=== PATIENT | female | born 1985 | race Caucasian/White ===

== ENCOUNTER 2016-08-26 17:01 | Emergency (ER) | payer OTHER, MEDICAID ==
[2016-08-26 17:18] VITALS: BP 139/91
--- NOTE | 2016-08-26 17:33 | UC ---
Palpitation/Dysrhythmia HP - HPI Summary HPI Summary: 31 yo female has had intermittent skipped beats since 3AM no CP or SOB dad has AF no f/c three days ago had 15-20 episodes of diarrhea - History of Current Complaint Chief Complaint: UCChestPain Stated Complaint: CHEST PAIN, AND PALIPATATIONS Time Seen by Provider: 08/26/16 17:32 Hx Obtained From: Patient Hx Last Menstrual Period: 3-4 weeks ago Onset/Duration: Sudden Onset - about 3AM Timing: Intermittent Episodes Lasting: - seconds Severity Initially: Mild Severity Currently: None Pain Intensity: 1 Pain Scale Used: 0-10 Numeric Character: Skipped Beats Aggravating Factor(s): Nothing Alleviating Factor(s): Nothing Related History: Similar Episode/Dx as - has had them in past - Allergy/Home Medications Allergies/Adverse Reactions: Allergies Allergy/AdvReac Type Severity Reaction Status Date / Time Penicillins [PCN] Allergy Hives Verified 08/26/16 17:18 Home Medications: Home Medications NK [No Home Medications Reported] 08/26/16 [History Confirmed 08/26/16] PMH/Surg Hx/FS Hx/Imm Hx Previously Healthy: Yes - Surgical History Surgical History: None - Family History Known Family History: Positive: Hypertension, Diabetes, Other - a/f - Social History Alcohol Use: Occasionally Substance Use Type: None Smoking Status (MU): Current Every Day Smoker Length of Time of Smoking/Using Tobacco: 4 cig a day Review of Systems Constitutional: Negative Skin: Negative Eyes: Negative ENT: Negative Respiratory: Negative Cardiovascular: Palpitations Gastrointestinal: Negative Genitourinary: Negative Motor: Negative Neurovascular: Negative Musculoskeletal: Negative Neurological: Negative Psychological: Negative All Other Systems Reviewed And Are Negative: Yes Physical Exam Triage Information Reviewed: Yes Appearance: Well-Appearing, No Pain Distress, Well-Nourished, Obese Vital Signs: Initial Vital Signs Temp 97.8 F 08/26/16 17:06 Pulse 70 08/26/16 17:06 Resp 16 08/26/16 17:06 BP 139/91 08/26/16 17:06 Pulse Ox 99 08/26/16 17:06 Vital Signs Reviewed: Yes Eyes: Positive: Conjunctiva Clear ENT: Positive: Hearing grossly normal, Pharynx normal, Tonsillar swelling. Negative: Nasal congestion, Nasal drainage, Tonsillar exudate, Trismus, Muffled/ hoarse voice Neck exam: Normal Neck: Positive: Supple, Nontender, No Lymphadenopathy Respiratory: Positive: Lungs clear, Normal breath sounds, No respiratory distress Cardiovascular: Positive: RRR, No Murmur. Negative: Tachycardia Abdomen Description: Positive: Nontender, No Organomegaly, Soft Musculoskeletal: Positive: ROM Intact, No Edema Neurological Exam: Normal Neurological: Positive: Alert Psychological Exam: Normal Diagnostics - EKG Cardiac Rate: NL Cardiac Rhythm: Sinus: Normal Ectopy: None ST Segment: Normal Palpitations Course/Dx - Differential Dx/Diagnosis Provider Diagnoses: palpitations Discharge - Discharge Plan Condition: Stable Disposition: HOME Patient Education Materials: Palpitations (ED) Referrals: Rosa Barfield [Primary Care Provider] - 1 Week Additional Instructions: blood work is pending decrease or stop smoking I suggest you ask your MD about getting a SLEEP STUDY return for new or worsening symptoms decrease or stop smoking avoid caffeine
[2016-08-27 10:57] LABS: Hematocrit 42 % (35-47); Hemoglobin 14.2 g/dl (12.0-16.0); Mean Corpuscular HGB Conc 34 g/dl (31-36); Mean Corpuscular Hemoglobin 29 pg (27-31); Mean Corpuscular Volume 86 fL (80-97); Mean Platelet Volume 9 um3 (7.4-10.4); Red Blood Count 4.91 10^6/ul (4.0-5.4); Red Cell Distribution Width 13 % (10.5-15); White Blood Count 10.8 10^3/ul (3.5-10.8)
[2016-08-27 11:17] LABS: BUN/Creatinine Ratio 14.8 (8-20); Calcium 9.3 mg/dL (8.6-10.3); EGFR African American 147.1 (>60); EGFR Non-African American 114.4 (>60); Potassium 3.7 mmol/L (3.5-5.0)
[2016-08-27 11:19] LABS: TSH (Thyroid Stimulating Horm) 3.23 mcIU/mL (0.34-5.60)
== END 2016-08-26 18:12 | disposition home or self-care (01) ==
LOC: UCEAST 17:01
DX: R00.2 Palpitations (principal); R19.7 Diarrhea, unspecified; Z32.02 Encounter for pregnancy test, result negative; Z88.0 Allergy status to penicillin; F17.210 Nicotine dependence, cigarettes, uncomplicated
CPT/HCPCS: 36415; 80048; 81025; 84443; 85025; 93005; 99211; G0463

== ENCOUNTER 2017-04-13 09:34 | Emergency (ER) | payer OTHER, MEDICAID ==
[2017-04-13 09:48] VITALS: BP 128/78
--- NOTE | 2017-04-13 10:06 | UC ---
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 - History of Current Complaint Chief Complaint: UCGeneralIllness Stated Complaint: SORE THROAT Time Seen by Provider: 04/13/17 09:49 Hx Obtained From: Patient Hx Last Menstrual Period: 04/16/17 Onset/Duration: Gradual Onset, Lasting Hours Severity: Moderate Pain Intensity: 4 Pain Scale Used: 0-10 Numeric Cough: None Associated Signs & Symptoms: Positive: Fever - Allergies/Home Medications Allergies/Adverse Reactions: Allergies Allergy/AdvReac Type Severity Reaction Status Date / Time Penicillins [PCN] Allergy Hives Verified 04/13/17 09:43 Home Medications: Home Medications LORazepam TAB(*) [Ativan 0.5 MG TAB (*)] 0.5 mg PO Q6HR 04/13/17 [History Confirmed 04/13/17] PMH/Surg Hx/FS Hx/Imm Hx Previously Healthy: Yes - Surgical History Surgical History: None - Family History Known Family History: Positive: Cardiac Disease, Hypertension, Diabetes, Other - a/f - Social History Alcohol Use: Occasionally Substance Use Type: None Smoking Status (MU): Current Every Day Smoker Length of Time of Smoking/Using Tobacco: 4 cig a day Review of Systems Constitutional: Fever, Chills Skin: Negative Eyes: Negative ENT: Sore Throat Respiratory: Negative Cardiovascular: Negative Gastrointestinal: Negative Genitourinary: Negative Motor: Negative Neurovascular: Negative Musculoskeletal: Myalgia Neurological: Headache Psychological: Negative Is Patient Immunocompromised?: No All Other Systems Reviewed And Are Negative: Yes Physical Exam Triage Information Reviewed: Yes Appearance: Well-Appearing, No Pain Distress, Well-Nourished Vital Signs: Initial Vital Signs Temp 98.3 F 04/13/17 09:45 Pulse 70 04/13/17 09:45 Resp 16 04/13/17 09:45 BP 128/78 04/13/17 09:45 Pulse Ox 99 04/13/17 09:45 Vital Signs Reviewed: Yes Eyes: Positive: Conjunctiva Clear ENT: Positive: Hearing grossly normal, Pharyngeal erythema, TMs normal, Tonsillar swelling, Tonsillar exudate. Negative: Nasal congestion, Nasal drainage, Trismus, Muffled/hoarse voice Dental Exam: Normal Neck: Positive: Supple, Enlarged Nodes @ - ant cervical Respiratory: Positive: Lungs clear, Normal breath sounds, No respiratory distress Cardiovascular: Positive: RRR, No Murmur Musculoskeletal: Positive: ROM Intact, No Edema Neurological: Positive: Alert, Muscle Tone Normal Psychological Exam: Normal Skin Exam: Normal Throat Pain/Nasal Course/Dx - Differential Dx/Diagnosis Provider Diagnoses: acute exudative tonsillitis Discharge - Discharge Plan Condition: Stable Disposition: HOME Prescriptions: Cephalexin CAP* [Keflex CAP*] 500 mg PO BID #20 cap Fluconazole 150 MG (NF) [Diflucan 150 mg (NF)] 150 mg PO ONCE #1 tab Patient Education Materials: Tonsillitis (ED) Forms: *Work Release Referrals: Rosa Barfield [Primary Care Provider] - 4 Days (if not better) Additional Instructions: recheck in 3-4 days if not better rest fluids tylenol
== END 2017-04-13 10:04 | disposition home or self-care (01) ==
LOC: UCEAST 09:34
DX: J03.90 Acute tonsillitis, unspecified (principal); F17.210 Nicotine dependence, cigarettes, uncomplicated
CPT/HCPCS: 99212; G0463

== ENCOUNTER 2017-06-27 11:34 | Emergency (ER) | payer MEDICAID, OTHER ==
[2017-06-27 13:52] VITALS: BP 128/81
--- NOTE | 2017-06-27 14:10 | UC ---
Lower Extremity/Ankle HPI - HPI Summary HPI Summary: unusual pain and swelling sensation in right lower calf, bruising with hematoma right thigh - History of Current Complaint Chief Complaint: UCLowerExtremity Stated Complaint: SPOTS ON LEGS Time Seen by Provider: 06/27/17 14:03 Hx Obtained From: Patient Hx From Patient Unobtainable Due To: Dementia Hx Last Menstrual Period: 06/19/17 ?: No Onset/Duration: Sudden Onset, Lasting Days - 2, Still Present Severity Initially: Mild Severity Currently: Mild Aggravating Factor(s): Nothing Alleviating Factor(s): Nothing Able to Bear Weight: Yes - Allergies/Home Medications Allergies/Adverse Reactions: Allergies Allergy/AdvReac Type Severity Reaction Status Date / Time Fluoxetine [From Prozac] Allergy See Comment Verified 06/27/17 14:40 Penicillins [PCN] Allergy Hives Verified 06/27/17 14:40 PMH/Surg Hx/FS Hx/Imm Hx Previously Healthy: No - dlood clots in right leg times 2 - Surgical History Surgical History: None - Family History Known Family History: Positive: Cardiac Disease, Hypertension, Diabetes, Other - a/f - Social History Occupation: Employed Full-time Lives: Alone Alcohol Use: Occasionally Substance Use Type: None Smoking Status (MU): Current Every Day Smoker Length of Time of Smoking/Using Tobacco: 4 cig a day Cessation Counseling: Patient Advised to Stop Review of Systems Constitutional: Negative Skin: Negative Eyes: Negative ENT: Negative Respiratory: Negative Cardiovascular: Negative Gastrointestinal: Negative Genitourinary: Negative Motor: Negative Neurovascular: Negative Musculoskeletal: Myalgia - right thight and calf Neurological: Negative Psychological: Negative Is Patient Immunocompromised?: No All Other Systems Reviewed And Are Negative: Yes Physical Exam Triage Information Reviewed: Yes Appearance: Well-Appearing, No Pain Distress, Well-Nourished Vital Signs: Initial Vital Signs Temp 97.8 F 06/27/17 11:45 Pulse 90 06/27/17 11:45 Resp 18 06/27/17 11:45 BP 131/66 06/27/17 11:45 Pulse Ox 99 06/27/17 11:45 Vital Signs Reviewed: Yes Eye Exam: Normal Eyes: Positive: Conjunctiva Clear ENT Exam: Normal ENT: Positive: Normal ENT inspection, Hearing grossly normal, Pharynx normal. Negative: Nasal congestion, Nasal drainage, Tonsillar swelling, Tonsillar exudate, Trismus, Muffled voice, Hoarse voice Dental Exam: Normal Neck exam: Normal Neck: Positive: Supple, Nontender Respiratory Exam: Normal Respiratory: Positive: Chest non-tender, Lungs clear, Normal breath sounds, No respiratory distress, No accessory muscle use Cardiovascular Exam: Normal Cardiovascular: Positive: RRR, No Murmur, Pulses Normal, Brisk Capillary Refill Musculoskeletal Exam: Normal Musculoskeletal: Positive: Strength Intact, ROM Intact Neurological Exam: Normal Psychological Exam: Normal Skin Exam: Normal Lower Extremity Course/Dx - Course Course Of Treatment: transfer by private car to [facility] for further evaluation - Differential Dx/Diagnosis Provider Diagnoses: Swelling 4 leg Discharge - Discharge Plan Condition: Stable Disposition: OTHER Discharge Disposition Comment: [facility] Patient Education Materials: Leg Edema (ED) Referrals: Karolyn Arenas MD [Primary Care Provider] - Additional Instructions: Please report to emergency department for further evaluation on swelling and tightness in right lower leg
== END 2017-06-27 14:17 ==
LOC: UCEAST 11:34
DX: M79.89 Other specified soft tissue disorders (principal); M79.661 Pain in right lower leg; Z86.718 Personal history of other venous thrombosis and embolism; Z72.0 Tobacco use
CPT/HCPCS: 99211; G0463

== ENCOUNTER 2017-06-27 14:34 | Emergency (ER) | payer OTHER ==
[2017-06-27 18:07] LABS: Hematocrit 41 % (35-47); Hemoglobin 13.9 g/dl (12.0-16.0); Mean Corpuscular HGB Conc 34 g/dl (31-36); Mean Corpuscular Hemoglobin 30 pg (27-31); Mean Corpuscular Volume 86 fL (80-97); Mean Platelet Volume 8 um3 (7.4-10.4); Red Blood Count 4.72 10^6/ul (4.0-5.4); Red Cell Distribution Width 13 % (10.5-15)
--- NOTE | 2017-06-27 18:21 | RAD ---
INDICATION: Right lower extremity pain and swelling. COMPARISON: There are no prior studies available for comparison. TECHNIQUE: Multiple real-time, color flow and Doppler tracings of the right lower extremity were obtained. FINDINGS: The common femoral, femoral, profunda femoral and popliteal veins all demonstrate normal compressibility, augmentation with compression and phasic response with respiration. The posterior tibial and peroneal veins demonstrate normal compressibility and augmentation with compression. IMPRESSION: NO EVIDENCE FOR DEEP VENOUS THROMBOSIS.
[2017-06-27 18:28] LABS: BUN/Creatinine Ratio 15.4 (8-20); EGFR Non-African American 105.6 (>60); Potassium 3.3 mmol/L (3.5-5.0)
[2017-06-27 18:29] LABS: Albumin 4.1 g/dL (3.2-5.2); EGFR African American 135.8 (>60); Total Bilirubin 0.6 mg/dL (0.2-1.0); Total Protein 7.1 g/dL (6.4-8.9)
[2017-06-27 18:45] VITALS: BP 132/79
--- NOTE | 2017-06-27 19:53 | ED ---
Rica Esquivel Gabriel, scribed for Bobby Matos MD on 06/27/17 at 1738 . Lower Extremity - HPI Summary HPI Summary: This patient is a 32 year old F presenting to [facility] with a chief complaint of pain in LLE since 3 days prior. She was sent to the ED after being referred from urgent care for possible DVTs due to her history of them. The patient rates the pain 3/10 in severity. Patient reports unexplained ecchymosis in legs , numbness and tingling in her right hand, and pain in her right calf. Patient denies CP. - History of Current Complaint Chief Complaint: EDGeneral Stated Complaint: LEG AND ARM PAIN SENT FROM [facility] Time Seen by Provider: 06/27/17 17:10 Hx Obtained From: Patient Hx Last Menstrual Period: 06/19/17 Onset/Duration: Still Present - 3 Pain Intensity: 3 Pain Scale Used: 0-10 Numeric Timing: Constant Able to Bear Weight: Yes - Allergies/Home Medications Allergies/Adverse Reactions: Allergies Allergy/AdvReac Type Severity Reaction Status Date / Time Fluoxetine [From Prozac] Allergy See Comment Verified 06/27/17 14:40 Penicillins [PCN] Allergy Hives Verified 06/27/17 14:40 PMH/Surg Hx/FS Hx/Imm Hx Previously Healthy: No Endocrine/Hematology History: Denies: Hx Diabetes, Hx Thyroid Disease Cardiovascular History: Reports: Hx Deep Vein Thrombosis - in 2016 Denies: Hx Hypertension Respiratory History: Denies: Hx Asthma, Hx Chronic Obstructive Pulmonary Disease (COPD) GI History: Denies: Hx Ulcer - Immunization History Date of Tetanus Vaccine: UTD Date of Influenza Vaccine: NO Infectious Disease History: No Infectious Disease History: Denies: Hx Clostridium Difficile, Hx Hepatitis, Hx Human Immunodeficiency Virus (HIV), Hx of Known/Suspected MRSA, Hx Shingles, Hx Tuberculosis, Hx Known/ Suspected VRE, Hx Known/Suspected VRSA, History Other Infectious Disease, Traveled Outside the [place] in Last 30 Days - Family History Known Family History: Positive: Cardiac Disease, Hypertension, Diabetes, Other - a/f - Social History Alcohol Use: Occasionally Substance Use Type: Reports: None Smoking Status (MU): Light Every Day Tobacco Smoker Length of Time of Smoking/Using Tobacco: 4 cig a day Review of Systems Negative: Fever, Chills Negative: Erythema Negative: Sore Throat Negative: Chest Pain Negative: Shortness Of Breath, Cough Negative: Abdominal Pain, Vomiting, Nausea Negative: dysuria, hematuria Positive: Other - LE pain and numbess and tingling in her right hand . Negative : Myalgia Positive: Bruising - on both LE . Negative: Rash Neurological: Negative - dizziness All Other Systems Reviewed And Are Negative: Yes Physical Exam - Summary Physical Exam Summary: Constitutional: Well-developed, Well-nourished, Alert. (-) Distressed Skin: Warm, Dry. There is induration 1cm below the right groin crease with overlaying ecchymosis. HENT: Normocephalic; Atraumatic Eyes: Conjunctiva normal Neck: Musculoskeletal ROM normal neck. (-) JVD, (-) Stridor, (-) Tracheal deviation Cardio: Rhythm regular, rate normal, Heart sounds normal; Intact distal pulses; The pedal pulses are 2+ and symmetric. Radial pulses are 2+ and symmetric. (-) Murmur Pulmonary/Chest wall: Effort normal. (-) Respiratory distress, (-) Wheezes, (-) Rales Abd: Soft, (-) Tenderness, (-) Distension, (-) Guarding, (-) Rebound Musculoskeletal: (-) Edema. There is tenderness in the patients right calf. Lymph: (-) Cervical adenopathy Neuro: Alert, Oriented x3 Psych: Mood and affect Normal Triage Information Reviewed: Yes Vital Signs On Initial Exam: Initial Vitals Temp Pulse Resp BP Pulse Ox 97.7 F 66 16 141/81 96 06/27/17 14:40 06/27/17 14:40 06/27/17 14:40 06/27/17 14:40 06/27/17 14:40 Vital Signs Reviewed: Yes - Raoul Coma Scale Coma Scale Total: 15 Diagnostics - Vital Signs Vital Signs Temp Pulse Resp BP Pulse Ox 06/27/17 14:40 97.7 F 66 16 141/81 96 - Laboratory Result Diagrams: 06/27/17 17:55 06/27/17 17:55 Lab Statement: Any lab studies that have been ordered have been reviewed, and results considered in the medical decision making process. - Additional Comments Diagnostic Additional Comments: Venous Doppler study reveals, per radiologist, NO EVIDENCE FOR DEEP VENOUS THROMBOSIS. ED physician has reviewed this radiology report and agrees. Re-Evaluation - Re-Evaluation First Eval Re-Evaluation Time: 18:34 Change: Unchanged - Discussed the possibility of error with patient and told her to come back for worsening symptoms. Lower Extremity Course/Dx - Diagnoses Provider Diagnoses: Varicose veins of bilateral lower extremities with pain, Calf pain Discharge - Discharge Plan Condition: Stable Disposition: HOME Patient Education Materials: Varicose Veins (ED) Referrals: Karolyn Arenas MD [Primary Care Provider] - 3 Days Additional Instructions: Return to the emergency department for new or worsening symptoms. The documentation as recorded by the Rica mejía Gabriel accurately reflects the service I personally performed and the decisions made by Shawna mane Jerry, MD.
== END 2017-06-27 18:44 | disposition home or self-care (01) ==
LOC: ED 14:34
DX: I83.93 Asymptomatic varicose veins of bilateral lower extremities (principal); M79.662 Pain in left lower leg; M79.661 Pain in right lower leg; R20.8 Other disturbances of skin sensation; F17.210 Nicotine dependence, cigarettes, uncomplicated; Z88.0 Allergy status to penicillin; Z86.711 Personal history of pulmonary embolism
CPT/HCPCS: 36415; 80053; 85027; 85610; 85730; 86141; 99282

== ENCOUNTER 2018-10-21 08:57 | Observation (INO) | payer OTHER ==
--- NOTE | 2018-10-21 09:49 | ED ---
Shortness of Breath - HPI Summary HPI Summary: A 33 y/o female presents to [facility] with a chief complaint of SOB starting 12 hours [employer]. She claims that she has had a rash for three days on her arms and across her abdomen. She saw Dr. Andre, her PCP at [facility], who thinks that her rash is due to an autoimmune disease. She claims that her pulse [employer] was 147. She reports that exertion aggravates her pain and rest alleviates her pain. At triage she rated her pain as a 4/10 in severity. She c/o joint pain and sharp/shooting pain in her arms and legs. She believes that she has not eaten anything new and has not used any new soaps or body washes. Vital signs while in room - HR: 111bpm, O2 Sat: 97, BP : 119/78. - History of Current Complaint Chief Complaint: EDShortnessOfBreath Time Seen by Provider: 10/21/18 09:20 Hx Obtained From: Patient Onset/Duration: Sudden Onset, Lasting Hours, Still Present Timing: Constant Current Severity: Moderate Dyspnea At: Exertion Aggrevating Factors: Movement Alleviating Factors: Other - rest Associated Signs & Symptoms: Negative - fever - Allergy/Home Medications Allergies/Adverse Reactions: Allergies Allergy/AdvReac Type Severity Reaction Status Date / Time fluoxetine Allergy Unknown Verified 10/21/18 09:25 Reaction Details Penicillins Allergy Hives Verified 10/21/18 09:25 Home Medications: Home Medications Lurasidone(*) [Latuda] 60 mg PO DAILY 10/21/18 [History Confirmed 10/21/18] traZODone TAB* [Desyrel TAB*] 50 mg PO BEDTIME 10/21/18 [History Confirmed 10/21] PMH/Surg Hx/FS Hx/Imm Hx Endocrine/Hematology History: Denies: Hx Diabetes, Hx Thyroid Disease Cardiovascular History: Reports: Hx Deep Vein Thrombosis - in 2016 Denies: Hx Hypertension Respiratory History: Denies: Hx Asthma, Hx Chronic Obstructive Pulmonary Disease (COPD) GI History: Denies: Hx Ulcer - Immunization History Date of Tetanus Vaccine: UTD Date of Influenza Vaccine: NO Infectious Disease History: No Infectious Disease History: Denies: Hx Clostridium Difficile, Hx Hepatitis, Hx Human Immunodeficiency Virus (HIV), Hx of Known/Suspected MRSA, Hx Shingles, Hx Tuberculosis, Hx Known/ Suspected VRE, Hx Known/Suspected VRSA, History Other Infectious Disease, Traveled Outside the [place] in Last 30 Days - Family History Known Family History: Positive: Cardiac Disease, Hypertension, Diabetes, Other - a/f - Social History Alcohol Use: Occasionally Substance Use Type: Reports: None Smoking Status (MU): Light Every Day Tobacco Smoker Length of Time of Smoking/Using Tobacco: 4 cig a day Review of Systems Negative: Fever Positive: Other - positive: reports being tachycardic at 147bpm [employer] Positive: Shortness Of Breath Positive: Arthralgia, Myalgia Positive: Rash All Other Systems Reviewed And Are Negative: Yes Physical Exam - Summary Physical Exam Summary: Appearance: The patient is well-nourished in no acute distress and in no acute pain. Skin: Diffuse lacy rash, mildly erythematous and blanchous. HEENT: The head is normocephalic and atraumatic. The pupils are equal and reactive. The conjunctivae are clear and without drainage. Nares are patent and without drainage. Mouth reveals moist mucous membranes and the throat is without erythema and exudate. The external ears are intact. The ear canals are patent and without drainage. The tympanic membranes are intact. Neck: The neck is supple with full range of motion and non-tender. There are no carotid bruits. There is no neck vein distension. Respiratory: Chest is non-tender. Lungs are clear to auscultation and breath sounds are symmetrical and equal. Cardiovascular: Heart is regular rate and rhythm. There is no murmur or rub auscultated. There is no peripheral edema and pulses are symmetrical and equal. Abdomen: The abdomen is soft and non-tender. There are normal bowel sounds heard in all four quadrants and there is no organomegaly palpated. Musculoskeletal: There is no back tenderness noted. Extremities are non-tender with full range of motion. There is good capillary refill. There is no peripheral edema or calf tenderness elicited. Neurological: Patient is alert and oriented to person, place and time. The patient has symmetrical motor strength in all four extremities. Cranial nerves are grossly intact. Deep tendon reflexes are symmetrical and equal in all four extremities. Psychiatric: The patient has an appropriate affect and does not exhibit any anxiety or depression. Triage Information Reviewed: Yes Vital Signs On Initial Exam: Initial Vitals Temp Pulse Resp BP Pulse Ox 98.4 F 140 22 112/88 98 10/21/18 08:58 10/21/18 08:58 10/21/18 08:58 10/21/18 08:58 10/21/18 08:58 Vital Signs Reviewed: Yes Diagnostics - Vital Signs Vital Signs Temp Pulse Resp BP Pulse Ox 10/21/18 09:19 143 25 10/21/18 09:10 22 119/78 10/21/18 09:07 141 99 10/21/18 08:58 98.4 F 140 22 112/88 98 - Laboratory Result Diagrams: 10/22/18 06:27 10/22/18 06:27 Lab Statement: Any lab studies that have been ordered have been reviewed, and results considered in the medical decision making process. - Radiology CXR Radiology Interpretation Completed By: Radiologist Summary of Radiographic Findings: NO ACTIVE CARDIOPULMONARY DISEASE. ED physician has reviewed this imaging report. - CT chest/thorax CTA CT Interpretation Completed By: Radiologist Summary of CT Findings: NO PULMONARY ARTERIAL FILLING DEFECT TO SUGGEST PULMONARY EMBOLISM. RIGHT AXILLARY LYMPHADENOPATHY. CHOLELITHIASIS. ED physician has reviewed this imaging report. Course/Dx - Course Course Of Treatment: Ms. Andrey Hinkle presented with a couple of days of exertional shortness of breath. She has a history of a superficial thrombophlebitis in the past was not being treated for that. She also notes that she developed a diffuse rash that started on her forearms and quickly spread over most of her body with her face being spared. It is not itchy nor does it hurt. She went to see her PCP and was noted to be tachycardic in the 140s. She was nontoxic in appearance here with stable vital signs and was not tachycardic lying in the gurney. She had diffuse lacy, blanching mildly erythematous rash. Labs were obtained and she had a fairly slightly elevated white blood cell count of 14 and an elevated CRP in the 100 range. When we made an attempt to ambulate her she did get very tachycardic. She was given IV fluids. She did not meet septic criteria here at rest in the bed. She was not febrile, she had a very mild leukocytosis and she was not tachycardic. However any attempt to get her up and she got tachycardic in spite of 2 L of fluid in the hospitalist service was contacted for evaluation and admission. - Diagnoses Provider Diagnoses: Tachycardia, Shortness of breath, Dyspnea - Physician Notifications Discussed Care of Patient With: Topher Parham Time Discussed With Above Provider: 17:56 Instructed by Provider To: Admit As Inpatient Discharge - Sign-Out/Discharge Documenting (check all that apply): Patient Departure - admit Patient Received Moderate/Deep Sedation with Procedure: No - Discharge Plan Condition: Fair Disposition: ADMITTED TO [facility] - Billing Disposition and Condition Condition: FAIR Disposition: Admitted to [facility] - Attestation Statements Document Initiated by Scribe: Yes Documenting Scribe: Lorenzo Parra Provider For Whom Scribe is Documenting (Include Credential): Fish Pool MD Scribe Attestation: ILorenzo scribed for Fish Pool MD on 10/22/18 at 1703. Scribe Documentation Reviewed: Yes Provider Attestation: The documentation as recorded by the Lorenzo mejía accurately reflects the service I personally performed and the decisions made by me, Fish Pool MD Status of Scribe Document: Viewed
[2018-10-21 10:50] LABS: Urine Appearance Clear; Urine Color Yellow; Urine Specific Gravity 1.015 (1.010-1.030)
[2018-10-21 10:51] LABS: Urine Ketones Negative (Negative); Urine Protein 1+(30 mg/dL) (Negative); Urine Urobilinogen Negative (Negative)
[2018-10-21 10:52] LABS: Urine Bilirubin Negative (Negative); Urine Blood 2+ (Negative); Urine Glucose Negative (Negative); Urine Nitrite Negative (Negative)
[2018-10-21 10:56] LABS: INR 1.29 (0.77-1.02)
[2018-10-21 11:04] LABS: Urine White Blood Cell 2+(11-20/hpf) (Absent)
[2018-10-21 11:05] LABS: Urine Bacteria 2+ (Absent); Urine Red Blood Cell 2+(6-10/hpf) (Absent); Urine Squamous Epithelial Cell Present (Absent)
[2018-10-21 11:09] LABS: ALT 12 U/L (7-52); AST 14 U/L (13-39); Albumin 3.4 g/dL (3.2-5.2); Albumin/Globulin Ratio 1.1 (1-3); Alkaline Phosphatase 54 U/L (34-104); Anion Gap 9 mmol/L (2-11); BUN/Creatinine Ratio 15.6 (8-20); Blood Urea Nitrogen 12 mg/dL (6-24); C Reactive Protein 132.76 mg/L (<8.01); CO2 Carbon Dioxide 25 mmol/L (22-32); Chloride 104 mmol/L (101-111); EGFR African American 104.5 (>60); EGFR Non-African American 86.3 (>60); Globulin 3.1 g/dL (2-4); Glucose 100 mg/dL (70-100); HCG Pregnancy < 0.60 mIU/mL; Potassium 3.8 mmol/L (3.5-5.0); Sodium 138 mmol/L (135-145); Total Protein 6.5 g/dL (6.4-8.9)
[2018-10-21 11:22] LABS: TSH (Thyroid Stimulating Horm) 2.05 mcIU/mL (0.34-5.60)
[2018-10-21] MEDS ORDERED: Iohexol 350* (CONTRAST) 500 ML MDV IV ONE (12:30)
[2018-10-21] MEDS: NS 0.9% 1000 ML** 1,000 ML IV ONE ×2 (15:07→16:24)
[2018-10-21 15:36] LABS: ABS Basophils 0 10^3/ul (0-0.2); ABS Eosinophils 0.5 10^3/ul (0-0.6); ABS Lymphocytes 1.4 10^3/ul (1.0-4.8); ABS Monocytes 0.4 10^3/ul (0-0.8); ABS Neutrophils 11.8 10^3/ul (1.5-7.7); ABS Nucleated RBC 0 10^3/ul; Eosinophil % 3.4 %; Hematocrit 46 % (33-41); Hemoglobin 15.7 g/dL (12.0-16.0); Lymphocyte % 10.2 %; Mean Corpuscular HGB Conc 34 g/dL (31-36); Mean Corpuscular Hemoglobin 29 pg (27-31); Mean Corpuscular Volume 85 fL (80-97); Mean Platelet Volume 8.4 fL (7.4-10.4); Nucleated Red Blood Cells % 0; Platelet Count 221 10^3/uL (150-450); Red Blood Count 5.41 10^6 /uL (3.70-4.87); Red Cell Distribution Width 13 % (10.5-15); White Blood Count 14.1 10^3/uL (3.5-10.8)
[2018-10-21] MEDS ORDERED: Ondansetron INJ* 2 MG/ML VIAL IV PRN (18:18)
[2018-10-21] MEDS ORDERED: Acetaminophen TAB* 325 MG PO PRN (18:18)
[2018-10-21] MEDS ORDERED: cefTRIAXone(*) 1 GM in NS 0.9% 50 ML* 50 ML IVPB ONE (18:31)
[2018-10-21 18:41] LABS: Creatine Kinase 37 U/L (10-223)
[2018-10-21] MEDS: NS 0.9% 1000 ML** 1,000 ML IV SCH (19:50)
--- NOTE | 2018-10-21 20:30 | HP ---
CC: Dr. Luis Andre * HISTORY AND PHYSICAL: DATE OF ADMISSION: 10/21/18 PRIMARY CARE PROVIDER: Dr. Luis Andre. ATTENDING PHYSICIAN: Dr. Topher Parham * (dictated by Kinga Eli NP). CHIEF COMPLAINT: Shortness of breath and rash. HISTORY OF PRESENT ILLNESS: Ms. Andrey Hinkle is a 33-year-old female with past medical history of bipolar depression and a superficial blood clot, who presents to the emergency room today with complaints of shortness of breath and a rash. The patient reports that her symptoms came on somewhat abruptly approximately 3 days ago. She started having shortness of breath with exertion. This was relieved with rest, though she also is noted to have shortness of breath simply while standing and while having a conversation. She additionally noticed a rash from her knees to her neck. There is no pain or itching associated with the rash. She does complain of generalized myalgias and arthralgias. She feels as though her face is also swollen. 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 At that point, she was noted to have a resting heart rate in the 140s. She denies any fevers, changes in appetite, chest pain, cough, nausea, vomiting, diarrhea, abdominal pain, dysuria, neuro deficits, changes in vision, dysphagia. The patient does report since arriving in the emergency room this morning, she has developed some pain in her left ear which is intermittent, lasting only a few seconds at a time, though this pain is very sharp. She also reports some vaginal pain. She noticed this while wiping when providing a urine sample. Again, she does not have any dysuria, but rather just pain on palpation of the labia. She denies any recent changes in diet, soap, or detergent. In the emergency room, the patient was noted to be tachycardic up into the 140s. She was noted to have leukocytosis and elevated D-dimer and an elevated CRP. She had a normal chest x-ray and a chest CTA, which was unremarkable for a pulmonary embolism, though it did show some right axillary lymphadenopathy. In the emergency room, they gave the patient fluids in an attempt to decrease her heart rate, though ultimately that was not successful and so she was referred to the hospitalist service to evaluate for admission. PAST MEDICAL HISTORY: 1. Bipolar depression. 2. Superficial blood clot in the right lower extremity (the patient reports that this was not a DVT). PAST SURGICAL HISTORY: None. HOME MEDICATIONS: 1. Latuda 60 mg p.o. daily. 2. Trazodone 50 mg p.o. at bedtime. 3. Multivitamin 1 tablet p.o. daily. FAMILY HISTORY: Her father has atrial fibrillation and has some cardiac abnormality affecting the anatomy and position of his heart, though she is not sure what. She has a grandma with polymyalgia rheumatica. Her grandfather had heart disease requiring bypass, though ultimately from colon cancer. Her mother is alive and well. She reports 3 out of 4 grandparents have diabetes. SOCIAL HISTORY: The patient reports smoking approximately 4 to 5 cigarettes per day. She consumed alcohol socially. She denies any recreational drug use. 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 She lives at home with her fiance and 2 children. The patient's mother, Kelsey, will be her surrogate decision maker in the event she is unable to make her own decisions. Her phone number is [phone]. REVIEW OF SYSTEMS: An 11-point review of systems was performed and all the pertinent positive and negative findings are in the HPI. All other systems are negative. PHYSICAL EXAMINATION GENERAL: Ms. Andrey Hinkle is a well-developed, well-nourished, obese white female, sitting up in bed, in no acute distress. She appears her stated age. VITAL SIGNS: Temp 98.4, heart rate 123, respiratory rate 15, oxygen saturation 99% on room air, and blood pressure 112/79. HEENT: Head is atraumatic, normocephalic. Visual rader are grossly intact. Pupils equal, round, and reactive to light and accommodation. Extraocular movements intact. Hearing is grossly intact. External auditory canal is patent and free of cerumen. Tympanic membranes intact with visible landmarks. Oral mucous membranes are moist and without lesions. Tonsils without erythema or exudates. Pharynx is clear. NECK: Full range of motion. Thyroid not palpable. Trachea midline. No lymphadenopathy. RESPIRATORY: Symmetrical chest expansion. No chest wall deformities. Lungs clear to auscultation throughout. No rhonchi, wheezes, or rubs. CARDIOVASCULAR: Regular rate, tachycardic. S1, S2 present. No murmurs, rubs, or gallops. No JVD. ABDOMEN: Soft, nontender to palpation. Bowel sounds normoactive throughout. EXTREMITIES: Skin warm and smooth bilaterally. No edema. No clubbing or cyanosis. Pedal pulses 2+ bilaterally. MUSCULOSKELETAL: Full range of motion. Generalized myalgias and arthralgias. NEURO: Awake, alert, oriented x4. Cranial nerves II through XII grossly intact. Moves all extremities. SKIN: Grossly intact. There is what appears to be mottling on the patient's thighs and trunk, also present on her arms, most notable on her trunk. The rash is not raised and there are no signs of infection. DIAGNOSTIC STUDIES/LAB DATA: WBC 14.1, RBC 5.41, hemoglobin 15.7, hematocrit 46, platelets 221. INR 1.29. D-dimer greater than 1050. Sodium 138, potassium 3.8, chloride 104, carbon dioxide 25, BUN 12, creatinine 0.77, lactic acid 1.7, glucose 100. CRP 132, ESR 25, TSH 2.05. Urinalysis remarkable for blood, leukocyte esterase and bacteria. Chest x-ray reads as no active cardiopulmonary disease. Chest thorax CTA reads as no pulmonary arterial filling defect to suggest pulmonary embolism. Right axillary lymphadenopathy. Cholelithiasis. ASSESSMENT AND PLAN: Ms. Andrey Hinkle is a 33-year-old female with past medical history of depression, who presents to the emergency room today with complaints of shortness of breath and a rash and was found to be tachycardic and meeting systemic inflammatory response syndrome criteria. The patient will be admitted to observation for: 1. Systemic inflammatory response syndrome. The patient is meeting systemic inflammatory response syndrome criteria with tachycardia, tachypnea, and leukocytosis. There is no clear source of infection. The patient does have a somewhat dirty urinalysis, though it is not completely convincing of a urinary tract infection and she does not have any symptoms indicative of a urinary tract infection. There is no evidence of any other source of infection. I will check a strep and a mono, those are pending at this time, though I have low suspicion that those will be positive. There is no evidence of cellulitis or pneumonia and she does not have any upper respiratory symptoms. Because of her urinalysis, I will give her 1 dose of ceftriaxone and I will place her on IV fluids. 2. Tachycardia. The etiology of her tachycardia is unclear. She was negative for a pulmonary embolism and again there is no clear source of infection. She has been given IV fluids in the emergency room. I will continue her on IV fluids and we will monitor her on telemetry. 3. Shortness of breath. I suspect that her shortness of breath is secondary to her tachycardia as the shortness of breath is worse with exertion as is her tachycardia. I will give fluids as noted above. 4. Myalgias and rash. The patient has complaints of generalized myalgias and arthralgias starting suddenly 3 days ago. She also has livedo reticularis to her thighs, arms, and trunk. Again, the etiology is unclear. This may represent an unknown viral illness and as noted above, strep and mono are pending at this time, though this is not presenting as a typical strep or mono. She did have an XIOMARA drawn in the emergency room and that is pending at this time. She is noted to have an elevated ESR and CRP. I have ordered a creatine kinase, which is pending at this point. I think that this may likely represent a rheumatological disorder due to her widespread symptoms. Again, the differentials here are wide and may include a viral source of this polymyositis such as coxsackievirus or Abdiel-Rao. I do not think this represents any sort of drug-induced response as she has not taken any new medications recently. If her symptoms are persisting tomorrow, it may be worthwhile to contact Rheumatology and Dermatology to give further input. At this point, we will continue to monitor her and give her fluids as noted above. If any of the above-mentioned tests come back positive, I will treat accordingly. 5. Depression. Continue Latuda. 6. FEN. I have ordered fluids as noted above. She does not require any electrolyte repletion at this time and I have ordered a regular diet. 7. Code status. The patient will be a full code. 8. DVT prophylaxis. According to the DVT Risk Assessment, the patient scores a 1, putting her at low risk. We will use ambulation as DVT prophylaxis. TIME SPENT: Approximately 70 minutes were spent on this admission, greater than half of that time spent [id number] with the patient obtaining my history , performing my physical exam, and reviewing my plan of care. This case has been reviewed with my attending, Dr. Parham, who is in agreement with the plan of care. KINGA ELI, TOP LIFT COMPRESSER [id number]/[facility] #: [id number] LIVAN
[2018-10-21] MEDS ORDERED: traZODone TAB* 50 MG TAB PO SCH (21:00)
[2018-10-21 21:11] LABS: Influenza A Molecular NEGATIVE (Negative); Influenza B Molecular NEGATIVE (Negative)
[2018-10-21] MEDS: Lurasidone(*) 60 MG TAB PO SCH (21:23)
[2018-10-22] MEDS: NS 0.9% 1000 ML** 1,000 ML IV SCH (04:06)
[2018-10-22 07:08] LABS: ABS Basophils 0.1 10^3/ul (0-0.2); ABS Eosinophils 0.5 10^3/ul (0-0.6); ABS Lymphocytes 1.3 10^3/ul (1.0-4.8); ABS Monocytes 0.5 10^3/ul (0-0.8); ABS Neutrophils 12.4 10^3/ul (1.5-7.7); ABS Nucleated RBC 0 10^3/ul; Eosinophil % 3.2 %; Hematocrit 47 % (33-41); Hemoglobin 16.6 g/dL (12.0-16.0); Lymphocyte % 8.7 %; Mean Corpuscular HGB Conc 35 g/dL (31-36); Mean Corpuscular Hemoglobin 30 pg (27-31); Mean Corpuscular Volume 84 fL (80-97); Mean Platelet Volume 8.9 fL (7.4-10.4); Nucleated Red Blood Cells % 0.3; Platelet Count 233 10^3/uL (150-450); Red Cell Distribution Width 13 % (10.5-15); White Blood Count 14.8 10^3/uL (3.5-10.8)
[2018-10-22 07:32] LABS: BUN/Creatinine Ratio 15.9 (8-20); Calcium 7.6 mg/dL (8.6-10.3); EGFR African American 131.7 (>60); EGFR Non-African American 108.8 (>60); Potassium 3.8 mmol/L (3.5-5.0)
--- NOTE | 2018-10-22 10:59 | PN ---
Subjective Date of Service: 10/22/18 Interval History: Ms. Andrey Hinkle is not feeling any better today. She reports that the rash on her torso is now painful, and "feels like a bruise." This developed overnight and is causing her discomfort. Her groin pain is also worse, and she has significant pain while urinating. She denies dysuria, but notes that the area is painful to any sort of pressure. She continues to have SOB, even when just moving around in bed. Feels her face is more swollen. Friends at bedside agree. Joint and muscle aches are somewhat improved. Has been tachycardic all night, up into the 150s. No other complaints or concerns from nursing. Family History: Unchanged from Admission Social History: Unchanged from Admission Past Medical History: Unchanged from Admission Objective Active Medications: Acetaminophen (Tylenol Tab*) 650 mg PO Q4H PRN FEVER/PAIN Lurasidone HCl (Latuda) 60 mg PO 2100 NELDA Ondansetron HCl (Zofran Inj*) 4 mg IV Q4H PRN NAUSEA/VOMITING Trazodone HCl (Desyrel Tab*) 50 mg PO BEDTIME NELDA Vital Signs - 8 hr 10/22/18 10/22/18 03:41 08:23 Temperature 98.3 F 97.3 F Pulse Rate 105 93 Respiratory 18 20 Rate Blood Pressure 112/59 113/64 (mmHg) O2 Sat by Pulse 96 96 Oximetry Oxygen Devices in Use Now: None Appearance: Middle-aged female laying in bed in NAD, though dyspneic with minimal exertion Eyes: No Scleral Icterus Ears/Nose/Mouth/Throat: Mucous Membranes Moist, - - Mild facial and orbital edema Neck: NL Appearance and Movements; NL JVP, Trachea Midline Respiratory: Symmetrical Chest Expansion and Respiratory Effort, Clear to Auscultation Cardiovascular: NL Sounds; No Murmurs; No JVD, RRR - Tachycardic Skin: - - Livedo reticularis encompassing the torso and to a lesser extent the thighs and arms Neurological: Alert and Oriented x 3, NL Sensation, NL Muscle Strength and Tone Lines/Tubes/Other Access: Clean, Dry and Intact Peripheral IV Nutrition: Taking PO's Result Diagrams: 10/22/18 06:27 10/22/18 06:27 Additional Lab and Data: Assess/Plan/Problems-Billing Assessment: Ms. Andrey Blair is a 33 yo F with PMH of bipolar depression who presented to the ED with c/o SOB and rash and was found to be tachycardic and meeting SIRS criteria. - Patient Problems (1) SIRS (systemic inflammatory response syndrome) Code(s): R65.10 - SIRS OF NON-INFECTIOUS ORIGIN W/O ACUTE ORGAN DYSFUNCTION Comment: - Met criteria on admission with tachycardia, tachypnea, leukocytosis, but no obvious source of infection - Signs/symptoms include: tachycardia, tachypnea, mottling rash primarily on torso, facial and orbital edema, vulvar pain, generalized myalgias and arthralgias, left ear pain, right axillary lymphadenopathy, low-grade fever, elevated CRP and ESR, elevated d-dimer, leukocytosis - Suspect symptoms may be autoimmune in nature - Appreciate Rheumatology consult (2) Tachycardia Code(s): R00.0 - TACHYCARDIA, UNSPECIFIED Comment: - HR on telemetry has been 90-140s - Asymptomatic except for SOB - Echo shows EF 50-55%, probable diastolic dysfunction - Will hold off on medication at this point (3) Shortness of breath Code(s): R06.02 - SHORTNESS OF BREATH Comment: - CTA unremarkable - Suspect this is secondary to tachycardia (4) 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 Salazar; plan for punch biopsy - Continue to monitor (5) Generalized pain Code(s): R52 - PAIN, UNSPECIFIED Comment: - Myalgias, arthralgias, and vulvar pain - Unclear etiology but suspect rheumatology disorder - Start Tramadol (6) Bipolar depression Code(s): F31.9 - BIPOLAR DISORDER, UNSPECIFIED Comment: - Continue Latuda (7) DVT prophylaxis Comment: - Heparin SQ (8) Full code status Code(s): Z78.9 - OTHER SPECIFIED HEALTH STATUS Comment: Status and Disposition: Observation. Anticipate d/c home when medically stable. Attending: Monica Gifford
[2018-10-22] MEDS ORDERED: Perflutren Lipid Microsphere* 3 ML VIAL ONE (11:03)
[2018-10-22] MEDS: traMADol TAB* 50 MG PO PRN ×2 (12:02→17:46)
--- NOTE | 2018-10-22 12:45 | ECHO ---
Patient: CHRIS RINALDI [facility] Rec#: [id number] : 1985 Date: 10/22/2018 Age: 33y Height: 183 cm / 72.0 in Weight: 142 kg / 313.0 lbs Sex: F BSA: 2.58 Room#: 401 Admit Date#: 10/21/2018 Type: Inpatient Referring: Kinga Eli Reading: Chiki Ramirez MD Cutlery Grinder: Camila Potter RDCS CC: Luis Andre Transthoracic Echocardiogram Indication: Shortness of breath BP: 112/59 HR: 104 Rhythm: NSR Findings History: Morbid obesity, superficial blood clot RLE, family history of arrhythmias. Technical Comments: The study is technically limited due to patient body habitus. Completed at 1145. Left Ventricle: The left ventricular chamber size is normal. Mild concentric left ventricular hypertrophy is observed. Global left ventricular wall motion and contractility are within normal limits. Left ventricular systolic function is at the lower limits of normal. The estimated ejection fraction is 50-55%. There is an E to A reversal in the mitral valve flow pattern suggestive of diastolic dysfunction. Left Atrium: The left atrial chamber size is normal. Right Ventricle: The right ventricular cavity size is normal. The right ventricular global systolic function is normal.on limited A4C imaging. Right Atrium: The right atrium is mildly dilated. Aortic Valve: The aortic valve structure is not well visualized. There is no evidence of aortic regurgitation. There is no evidence of aortic stenosis. Mitral Valve: The mitral valve leaflets do not appear thickened. There is a trace of mitral regurgitation. Tricuspid Valve: The tricuspid valve leaflets are normal. There is a physiologic tricuspid regurgitation. Unable to estimate the right ventricular systolic pressure. There is no tricuspid stenosis. Pulmonic Valve: The pulmonic valve structure is not well visualized. There is a trace pulmonic regurgitation. There is no pulmonic stenosis. Pericardium: There is no significant pericardial effusion. A pericardial fat pad is visualized. Aorta: There is no dilatation of the ascending aorta. There is no dilatation of the aortic arch. There is mild dilatation of the aortic root. Pulmonary Artery: The main pulmonary artery is not well visualized. Venous: The inferior vena cava appears normal in size. There is a greater than 50% respiratory change in the inferior vena cava dimension. Contrast: Definity was used to optimize study. 4 mL of diluted Definity were utilized. Intravenous contrast was used to enhance endocardial border definition. Conclusions Left ventricular systolic function is at the lower limits of normal. The estimated ejection fraction is 50-55%. Global left ventricular wall motion and contractility are within normal limits. The left ventricular chamber size is normal. Mild concentric left ventricular hypertrophy is observed. There is an E to A reversal in the mitral valve flow pattern suggestive of diastolic dysfunction. The right atrium is mildly dilated. Functionally benign heart valves. There is mild dilatation of the aortic root. There is no prior echocardiogram available to compare with at this time. Measurements Name Value Normal Range RVIDd (AP) 2D 2.7 cm (0.9 - 2.6) RVAW (2D) 0.6 cm (0.2 - 0.5) RAd ISD 4CH 5.2 cm (3.4 - 4.9) RA (A4C)W 4.2 cm (2.9 - 4.6) IVSd (2D) 1.1 cm (0.6 - 1) LVPWd (2D) 1.2 cm (0.6 - 1) LVIDd (2D) 3.9 cm (3.6 - 5.4) LVIDs (2D) 3.2 cm - LV FS (2D) 19 % (25 - 45) Aortic Annulus 2.4 cm (1.4 - 2.6) Ao root diameter (2D) 3.6 cm (2.1 - 3.5) Ascending Ao 3.4 cm (2.1 - 3.4) Aortic arch 2.6 cm (1.8 - 3.4) LA dimension (AP) 2D 3.3 cm (2.3 - 3.8) LAd ISD 4CH 5.4 cm (2.9 - 5.3) LA ISD 4CH W 4 cm (2.5 - 4.5) Name Value Normal Range LA ESV BP (A/L) index 21 ml/m2 - Name Value Normal Range MV E-wave Vmax 0.4 m/sec - MV deceleration time 246 msec - MV A-wave Vmax 0.6 m/sec - MV E:A ratio 0.7 ratio - LV septal e' Vmax 0.07 m/sec - LV lateral e' Vmax 0.12 m/sec - LV E:e' septal ratio 5.7 ratio - LV E:e' lateral ratio 3.3 ratio - Name Value Normal Range AV Vmax 0.9 m/sec - AV VTI 14 cm - AV peak gradient 3 mmHg - AV mean gradient 2 mmHg - LVOT Vmax 0.7 m/sec - LVOT VTI 10 cm - LVOT peak gradient 2 mmHg - LVOT mean gradient 1 mmHg - CHARLEY Vmax 0.9 m/sec - Name Value Normal Range IVC diameter 1.9 cm - Name Value Normal Range PV Vmax 0.7 m/sec - PV peak gradient 2 mmHg -
[2018-10-22 13:08] LABS: Urine Appearance Cloudy; Urine Bacteria Absent (Absent); Urine Bilirubin Negative (Negative); Urine Blood 2+ (Negative); Urine Color Yellow; Urine Glucose Negative (Negative); Urine Ketones Negative (Negative); Urine Nitrite Negative (Negative); Urine Protein Negative (Negative); Urine Red Blood Cell 1+(3-5/hpf) (Absent); Urine Squamous Epithelial Cell Present (Absent); Urine Urobilinogen Negative (Negative); Urine White Blood Cell 2+(11-20/hpf) (Absent)
[2018-10-22 13:09] LABS: Neisseria gonorrhoeae (GC) RNA Negative (Negative)
[2018-10-22 13:10] LABS: Barbiturates Urine Screen None Detected (None Detect); Benzodiazepine Urine Screen None Detected (None Detect); Urine Cannabinoids Screen None Detected (None Detect)
--- NOTE | 2018-10-22 16:57 | CONSULT ---
Consult Consult: Ms. 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 Her presentation favors an acute allergic reaction to an unknown agent or reactive process. Consider an evolving connective tissue disorder. Skin biopsy and autoimmune serologies are pending. Consider trial of IV Solumedrol 60mg to treat her acute inflammatory condition.
--- NOTE | 2018-10-22 20:21 | CONS ---
CONSULTATION REPORT: DATE OF CONSULT: 10/22/18 CONSULTING PHYSICIAN: Kinga Eli NP. REASON FOR CONSULT: Evaluate for autoimmune condition in the setting of a rash and shortness of breath. HISTORY OF PRESENT ILLNESS: Ms. Andrey Hinkle is a 33-year-old woman with a past medical history of a superficial blood clot in the right lower extremity, but otherwise in good health. She came to the emergency room with complaints of worsening shortness of breath as well as a lower extremity rash which has since progressed. Her findings were concerning for her progressive shortness of breath; however, a CT scan of her lungs was negative for a pulmonary embolism. However, her rash has progressed and she has also noted some diffuse puffiness of her face as well as some edema of the eyelids as well as some generalized swelling, myalgias, and arthralgias. She can no longer get around easily in terms of even going to the restroom back and forth primarily because of the muscle and joint discomfort, but also because of her shortness of breath. She has also noted some mild discomfort around her rash, which has also spread. She also has complaints of mild ulcer in the back of her mouth and she also has some irritation of the vaginal region, so that it is very painful when she does urinate. There has been some possible urinary retention as well too. Her symptoms began a few days ago. She has had no new medications. She does have healthy pets. 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 I personally spoke to Dr. Andre who is her physician and employer, who saw her on Thursday and checked an antinuclear antibody, which Dr. Andre states is still pending as well as complements. There was a concern for a possible post streptococcal type of condition, although she did not have any recent strep infection and an ASO titer is pending as well. However, Dr. Andre did relate that her white count was normal whereas here in the hospital, it is slightly elevated at 14,000. She did have a mild polycythemia, which was also noted during her hospital stay. She did have a mild polycythemia on Thursday and this has persisted during her hospital stay. She has never had an event like this and never had a rash like this and no personal history of autoimmune conditions. She has been exposed to no new medication either over-the- counter or otherwise and as noted above not been exposed to any sick exposures. She notes that her symptoms began abruptly about 3 to 4 days prior to admission and was associated with shortness of breath , relieved with rest. As noted above, she also notes that her facial region is felt a bit swollen too. She has also had occasional pain in the left ear, which has been intermittent. She does not have any recent changes in her diet, soap, or detergent, but she does have complaints of pain around her labial region. In the ER, she was found to be tachycardic in the 140s. She was also found to be leukocytotic and had an elevated D-dimer with an elevated C- reactive protein. Chest x-ray and CT angio were negative for a pulmonary embolism, but it did show some right axillary lymphadenopathy. Of note, the rash that she has is more diffuse, but it spares her palms and feet. She did in the ER get some fluids and she was admitted given her persistent symptoms. PAST MEDICAL HISTORY: Includes: 1. Bipolar depression. 2. History of a superficial blood clot in the right lower extremity. PAST SURGICAL HISTORY: Includes none. HOME MEDICATIONS: Include: 1. Latuda 60 mg daily. 2. Trazodone 50 mg at bedtime. 3. Multivitamins. FAMILY HISTORY: Notable for father with atrial fibrillation with some cardiac issues related to the position of her heart. She had a grandmother with polymyalgia rheumatica. Her grandfather had heart disease with coronary artery bypass, but ultimately had colon cancer. Her mother is alive and well. She has a strong family history of diabetes in her grandparents. SOCIAL HISTORY: She does have a history of smoking about 4 to 5 cigarettes per day, which she will be planning on stopping. She does consume alcohol occasionally. She denies any recreational drug use. She did try some NyQuil the other night, but this is not new. She does occasionally take NyQuil and this is occasionally. 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 She lives at home with her fiance and 2 children. Her mother is also her surrogate decision maker. REVIEW OF SYSTEMS: General: She has had fatigue. HEENT: She has had no decrease in her vision. No red or painful eyes. On oral, she has had a small mouth ulcer. : She has had no macroscopic blood in the urine, although is noted on urinalysis, and she has had some labial discomfort and possibly urinary hesitance. She has had low back pain as well. Musculoskeletal: Noted both for diffuse myalgias as noted above as well as arthralgias. Skin is notable for the rash as noted above. Neurologic: No generalized or focal weakness. Endocrine: No glandular swelling. Hematologic: She does have mild polycythemia. Other 14-point review of systems were reviewed and were otherwise negative. PHYSICAL EXAM: She is pleasant, sitting up, in no acute distress, appeared to be her stated age. Her initial temperature was 98.4; heart rate was elevated slightly, 100 to 105; respiratory rate of 18; O2 sats 99% initially on room air ; and blood pressure was 112/79 initially. HEENT Exam: Normocephalic, atraumatic. Pupils equal, round and reactive to light and accommodate. Extraocular movements were intact. Hearing was intact and she did have moist oral mucosal membranes with no evidence of mucositis. I could not visualize an ulcer on feeling her oropharynx. Tonsils revealed no erythema. Neck revealed full range of motion. Thyroid: No thyromegaly. Trachea was midline. Lymph: No adenopathy. Lungs were clear to auscultation bilaterally. No chest wall deformities. No wheezes or rubs. Cardiovascular exam revealed slightly tachycardic rate, but normal rhythm. S1 and S2 were present. No murmurs, rubs , or gallops. No JVP elevation. Abdomen: Soft, obese, nontender, nondistended. Bowel sounds normoactive throughout. Extremities: Skin was warm and smooth. She did have mild heliotrope edema around her eyelids. No clubbing or cyanosis. Pedal pulses were 2+. On skin exam, she did have a livedoid vascular exanthem which was flat for the most part, which was scattered in places, but largely confluent on her trunk and upper extremities, sparing the bottom of her feet around her palms and plantar regions of her feet, but she did have erythematous exanthem spreading down her legs as well too and her abdomen and upper chest wall region. There appeared to be mild livedo reticularis in the lower extremities. Neurologic: Otherwise, nonfocal. Musculoskeletal: She had no synovitis. She had full range of motion of her joints. DIAGNOSTIC STUDIES/LAB DATA: She had a white count of 14.1, RBC count of 5.41, hematocrit 46,000, platelets 221,000. INR of 1.29. D-dimer greater than 1050. Sodium 138, potassium 3.8, chloride of 104. Urinalysis remarkable for blood, leukocyte esterase, and bacteria. Chest x-ray revealed no active cardiopulmonary disease. Chest CT revealed right axillary lymphadenopathy, but no pulmonary adenopathy. She did have cholelithiasis. ASSESSMENT AND PLAN: Ms. 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 She is also slightly polycythemic. I am wondering that there is an underlying sleep disorder process such as sleep apnea, but the main concern is her more immediate inflammatory condition affecting her skin as well as her shortness of breath. The etiology is unclear, but it does appear to be either an allergic reaction to an unknown event or trigger or possibly an evolving connective tissue order or vasculopathy. I understand that she is getting a skin biopsy and I would like to follow up this. We will also check an XIOMARA. I would also consider checking an RPR, CMV titers, and anticardiolipin antibodies as well as an ANCA. We will also check a celiac panel, although her symptoms are very acute for this for anything other an acute allergic reaction, also consider a connective tissue disorder. She does have an elevated D-dimer. Consider, if the infection has been ruled out, possible short trial of corticosteroids including Solu-Medrol 60 mg daily. I will continue to follow daily. [id number]/[facility] #: [id number] [facility]ITAN HOSPITALRosangela
[2018-10-22] MEDS: methylPREDNISolone SOD 40 MG* 1 ML VIAL IV SCH (20:30)
[2018-10-22] MEDS: Lurasidone(*) 60 MG TAB PO SCH (20:30)
[2018-10-22] MEDS: Nystatin TOP POWDER* 15 GM BTL TOPICAL SCH (20:31)
[2018-10-22] MEDS: Miconazole TOPICAL CREAM 2%* 30 GM TOPICAL SCH (20:32)
[2018-10-22] MEDS ORDERED: traZODone TAB* 50 MG TAB PO SCH ×2 (21:00)
[2018-10-23 04:59] LABS: ABS Basophils 0 10^3/ul (0-0.2); ABS Eosinophils 0 10^3/ul (0-0.6); ABS Lymphocytes 1.1 10^3/ul (1.0-4.8); ABS Monocytes 0.2 10^3/ul (0-0.8); ABS Neutrophils 8.7 10^3/ul (1.5-7.7); ABS Nucleated RBC 0 10^3/ul; Eosinophil % 0.3 %; Hematocrit 46 % (33-41); Hemoglobin 15.9 g/dL (12.0-16.0); Lymphocyte % 10.5 %; Mean Corpuscular HGB Conc 34 g/dL (31-36); Mean Corpuscular Hemoglobin 29 pg (27-31); Mean Corpuscular Volume 84 fL (80-97); Mean Platelet Volume 8.8 fL (7.4-10.4); Nucleated Red Blood Cells % 0; Platelet Count 247 10^3/uL (150-450); Red Blood Count 5.47 10^6 /uL (3.70-4.87); Red Cell Distribution Width 13 % (10.5-15); White Blood Count 10.1 10^3/uL (3.5-10.8)
[2018-10-23 05:14] LABS: BUN/Creatinine Ratio 22.4 (8-20); Calcium 7.8 mg/dL (8.6-10.3); EGFR Non-African American 145.4 (>60); Potassium 4.3 mmol/L (3.5-5.0)
[2018-10-23] MEDS: methylPREDNISolone SOD 40 MG* 1 ML VIAL IV SCH (07:45)
[2018-10-23] MEDS: Miconazole TOPICAL CREAM 2%* 30 GM TOPICAL SCH (07:45)
[2018-10-23] MEDS: Nystatin TOP POWDER* 15 GM BTL TOPICAL SCH (07:45)
--- NOTE | 2018-10-23 08:42 | PN ---
Subjective Date of Service: 10/23/18 Interval History: Ms. Andrey Hinkle reports feeling much better today. Her rash is resolving. Her vulvar pain is resolving. She has ambulated around the unit without significant SOB or tachycardia. Family History: Unchanged from Admission Social History: Unchanged from Admission Past Medical History: Unchanged from Admission Objective Active Medications: Acetaminophen (Tylenol Tab*) 650 mg PO Q4H PRN Lurasidone HCl (Latuda) 60 mg PO 2100 NELDA Methylprednisolone Sodium Succinate (Solu-Medrol 40 Mg) 60 mg IV Q12H NELDA Miconazole Nitrate (Monistat 2%*) 1 applic TOPICAL BID NELDA Nystatin (Nystatin Top Powder*) 1 applic TOPICAL TID NELDA Ondansetron HCl (Zofran Inj*) 4 mg IV Q4H PRN Tramadol HCl (Ultram*) 50 mg PO Q6H PRN Trazodone HCl (Desyrel Tab*) 100 mg PO BEDTIME NELDA Vital Signs: Temp Pulse Resp BP Pulse Ox 97.6 F 109 18 124/82 96 10/23/18 07:25 10/23/18 07:25 10/23/18 07:25 10/23/18 07:25 10/23/18 07:25 Oxygen Devices in Use Now: None Appearance: Female sitting up in bed in NAD Eyes: No Scleral Icterus Ears/Nose/Mouth/Throat: Mucous Membranes Moist Neck: Trachea Midline Respiratory: Symmetrical Chest Expansion and Respiratory Effort, Clear to Auscultation Cardiovascular: NL Sounds; No Murmurs; No JVD, No Edema Abdominal: NL Sounds; No Tenderness; No Distention Extremities: No Edema Skin: - - Rash greatly resolved, significant erythema to vulva, no drainage noted Neurological: Alert and Oriented x 3, NL Muscle Strength and Tone Nutrition: Taking PO's Result Diagrams: 10/23/18 04:43 10/23/18 04:43 Additional Lab and Data: . Assess/Plan/Problems-Billing Assessment: Ms. Andrey Blair is a 33 yo F with PMH of bipolar depression who presented to the ED with c/o SOB and rash and was found to be tachycardic and meeting SIRS criteria with ? of allergic or autoimmune process. - Patient Problems (1) SIRS (systemic inflammatory response syndrome) Comment: - Resolved, met criteria on admission with tachycardia, tachypnea, leukocytosis , but no obvious source of infection - Patient reported vulvar pain with urination with clinical symptoms of vaginitis. Exam consistent with yeast, but swab negative. - Signs/symptoms have included: tachycardia, tachypnea, mottling rash primarily on torso, facial and orbital edema, vulvar pain, generalized myalgias and arthralgias, left ear pain, right axillary lymphadenopathy, low-grade fever, elevated CRP and ESR, elevated d-dimer, leukocytosis, dysuria - Suspect symptoms may be autoimmune in nature, solumedrol started, multiple rheum studies pending (2) Tachycardia Comment: - HR on telemetry has been 70-100s this AM - Asymptomatic except for SOB - Echo shows EF 50-55%, probable diastolic dysfunction (3) Shortness of breath Comment: - CTA unremarkable - Suspect this is secondary to tachycardia (4) Livedo reticularis Comment: - Resolving - Developed abruptly 3 days prior to admission; encompassing torso and, to a lesser extent, thighs and arms - Previously not painful, but now painful with palpation today - Etiology unclear, though this certainly does not represent DIC - Appreciate consult by Dr. Salazar; punch biopsy results pending - Continue to monitor (5) Vaginitis Comment: - Yeast swab was negative, BV negative, GC/Chlamydia negative - Patient partially treated for yeast, so may have been false negative - Did give diflucan x 1 and will send patient with another dose to take in 3 days - May be related to overall presentation or simply a sequalae. - Patient will be following up closely with PCP and Dr. Man (6) Generalized pain Comment: - Myalgias, arthralgias, and vulvar pain - Unclear etiology but suspect rheumatology disorder - Start Tramadol (7) Bipolar depression Comment: - Continue Latuda (8) DVT prophylaxis Comment: - Heparin SQ (9) Full code status Comment: Status and Disposition: Observation. Anticipate d/c home when medically stable.
[2018-10-23] MEDS ORDERED: Fluconazole 150 MG TAB PO ONE (09:30)
[2018-10-23 11:22] VITALS: BP 115/76
--- NOTE | 2018-10-23 13:33 | PN ---
Subjective - Subjective Date of Service: 10/23/18 - Chief Complaint: Rash, Dyspnea History: Ms. Andrey Hinkle began Solumedrol this morning and already is feeling much better. Her rash is resolving. She denied dyspnea and denied significant joint complaints. No significant symptoms. Able to ambulate. Swelling around eyes is better Active Problems: Active Problems Bipolar depression (Acute) F31.9 - Continue Latuda DVT prophylaxis (Acute) [id number] - Heparin SQ Full code status (Acute) Z78.9 Generalized pain (Acute) R52 - Myalgias, arthralgias, and vulvar pain - Unclear etiology but suspect rheumatology disorder - Start Tramadol Livedo reticularis (Acute) R23.1 - Developed abruptly 3 days prior to admission; encompassing torso and, to a lesser extent, thighs and arms - Previously not painful, but now painful with palpation today - Etiology unclear, though this certainly does not represent DIC - Appreciate consult by Dr. Salazar; punch biopsy results pending - Continue to monitor SIRS (systemic inflammatory response syndrome) (Acute) R65.10 - Resolved, met criteria on admission with tachycardia, tachypnea, leukocytosis, but no obvious source of infection - Patient reported dysuria. UA overtly positive, urine culture with mixed lauri and likely contamination, repeat culture pending. GC/chlamydia negative. - Signs/symptoms have included: tachycardia, tachypnea, mottling rash primarily on torso, facial and orbital edema, vulvar pain, generalized myalgias and arthralgias, left ear pain, right axillary lymphadenopathy, low-grade fever, elevated CRP and ESR, elevated d- dimer, leukocytosis, dysuria - Suspect symptoms may be autoimmune in nature, solumedrol started, multiple rheum studies pending Shortness of breath (Acute) R06.02 - CTA unremarkable - Suspect this is secondary to tachycardia Tachycardia (Acute) R00.0 - HR on telemetry has been 70-100s this AM - Asymptomatic except for SOB - Echo shows EF 50-55%, probable diastolic dysfunction Current Medications: Current Medications Acetaminophen (Tylenol Tab*) 650 mg PO Q4H PRN PRN Reason: FEVER/PAIN Last Admin: 10/21/18 19:44 Dose: 650 mg Lurasidone HCl (Latuda) 60 mg PO 2100 NELDA Last Admin: 10/22/18 20:30 Dose: 60 mg Methylprednisolone Sodium Succinate (Solu-Medrol 125mg *) 60 mg IV DAILY [facility] Ondansetron HCl (Zofran Inj*) 4 mg IV Q4H PRN PRN Reason: NAUSEA/VOMITING Tramadol HCl (Ultram*) 50 mg PO Q6H PRN PRN Reason: PAIN Last Admin: 10/22/18 17:46 Dose: 50 mg Trazodone HCl (Desyrel Tab*) 100 mg PO BEDTIME [facility] Last Admin: 10/22/18 21:55 Dose: 100 mg - Review of Systems Constitutional Symptoms: No: Weight Gain, Weakness, Unexplained Falls Dermatology: Rash: Yes, Change in Skin Lesion: Yes - Improving HEENT: No Normal Eyes: Positive: Normal Thyroid: Positive: Normal Pulmonary: Positive: Normal Cardiology: Positive: Normal Gastroenterology: Positive: Normal Endocrinology: Positive: Normal Neurology: Positive: Normal Psychiatry: Positive: Normal Allergic/Immunologic: Positive: Immunocompromise Home Medications: Home Medications Medication Instructions Recorded Confirmed Type Lurasidone(*) [Latuda] 60 mg PO DAILY 10/21/18 10/21/18 History traZODone TAB* [Desyrel TAB*] 50 mg PO BEDTIME 10/21/18 10/21/18 History Allergies: Allergies Allergy/AdvReac Type Severity Reaction Status Date / Time fluoxetine Allergy Unknown Verified 10/21/18 09:25 Reaction Details Penicillins Allergy Hives Verified 10/21/18 09:25 Objective - Vital Signs Vital Signs: Vital Signs 10/22/18 10/22/18 10/22/18 15:17 16:06 17:46 Temperature 97.4 F Pulse Rate 119 Respiratory 20 18 16 Rate Blood Pressure 124/92 (mmHg) O2 Sat by Pulse 97 Oximetry 10/22/18 10/22/18 10/22/18 20:00 20:31 23:17 Temperature 97.5 F Pulse Rate 97 Respiratory 20 16 20 Rate Blood Pressure 106/62 (mmHg) O2 Sat by Pulse 95 Oximetry 10/23/18 10/23/18 10/23/18 02:59 07:25 11:08 Temperature 97.7 F 97.6 F 96.4 F Pulse Rate 77 109 82 Respiratory 20 18 20 Rate Blood Pressure 104/66 124/82 115/76 (mmHg) O2 Sat by Pulse 95 96 96 Oximetry 10/23/18 12:50 Temperature 96.4 F Pulse Rate 82 Respiratory 20 Rate Blood Pressure 115/76 (mmHg) O2 Sat by Pulse 96 Oximetry - Intake and Output Intake and Output: Intake & Output 10/21/18 10/22/18 10/23/18 10/24/18 06:59 06:59 06:59 06:59 Intake Total 1700 1780 480 Balance 1700 1780 480 Weight 312 lb 11.2 oz Intake: IV Fluids 1700 500 normal saline 500 Oral 0 1280 480 Other: Estimated Void Medium Medium Date of Last Bowel [id number] Movement # Bowel Movements 2 Estimated Stool Amount Medium # Voids 1 2 ADLs: Meal Record Start: 10/21/18 20: 00 Freq: DAILY@0900,1400,1800 Status: Active Protocol: Created 10/21/18 20:00 System (Rec: 10/21/18 20:00 System [email or web address]) Document 10/22/18 09:00 [id number] (Rec: 10/22/18 10:01 [id number] MED-C09) Document 10/22/18 13:22 [id number] (Rec: 10/22/18 13:22 [id number] MED-C13) Document 10/22/18 18:00 [id number] (Rec: 10/22/18 19:33 [id number] MED-C14) Document 10/23/18 09:00 [id number] (Rec: 10/23/18 09:05 [id number] MED-C11) Document 10/23/18 13:01 [id number] (Rec: 10/23/18 13:02 [id number] MED-C07) Intake and Output Start: 10/21/18 09: 01 Freq: Status: Inactive Protocol: Created 10/21/18 09:01 System (Rec: 10/21/18 09:01 System [id number]) Intake and Output Start: 10/21/18 20: 00 Freq: DAILY@0600,1400,2200 Status: Active Protocol: Created 10/21/18 20:00 System (Rec: 10/21/18 20:00 System [email or web address]) Document 10/21/18 22:00 [id number] (Rec: 10/22/18 00:25 [id number] MED-C13) Document 10/22/18 05:59 [id number] (Rec: 10/22/18 05:59 [id number] MED-C13) Document 10/22/18 14:00 [id number] (Rec: 10/22/18 14:22 [id number] MED-C13) Document 10/22/18 21:28 [id number] (Rec: 10/22/18 21:30 [id number] MED-C14) Document 10/23/18 05:27 [id number] (Rec: 10/23/18 05:29 [id number] MED-C11) - Physical Exam General Physical Exam Comment: No acute distress; sitting up Eye Exam: bilateral: EOMI Skin: Abnormal: Rash - Much improved; very faint on the legs; no periorbital edema Thyroid Function: Clinically Euthyroid Endocrine: Yes Central Obesity Lungs and Chest: Yes: Chest Expansion Full, Chest Expansion Symetrica, Percussion Note Resonant Heart Rate and Rhythm: Regular JVP: Not Elevated Wisner Beat: Non Displaced Additional Cardiovascular: Yes: Wisner Beat not Displaced, Normal Heart Sounds Abdominal Exam: Yes: Soft - Neuro Psychiatric: Normal Speech: Normal Results - Results Lab Results: Laboratory Results - last 24 hr 10/21/18 10/22/18 10/22/18 10:31 17:27 17:27 WBC RBC Hgb Hct MCV MCH MCHC RDW Plt Count MPV Neut % (Auto) Lymph % (Auto) Dyer % (Auto) Eos % (Auto) Baso % (Auto) Absolute Neuts (auto) Absolute Lymphs (auto) Absolute Monos (auto) Absolute Eos (auto) Absolute Basos (auto) Absolute Nucleated RBC Nucleated RBC % Fibrinogen 718.3 H Sodium Potassium Chloride Carbon Dioxide Anion Gap BUN Creatinine Est GFR ( Amer) Est GFR (Non-Af Amer) BUN/Creatinine Ratio Glucose Calcium Anti-Nuclear Antibody 0.2 Syphilis IgG Antibody Nonreactive 10/23/18 10/23/18 04:43 04:43 WBC 10.1 RBC 5.47 H Hgb 15.9 Hct 46 H MCV 84 MCH 29 MCHC 34 RDW 13 Plt Count 247 MPV 8.8 Neut % (Auto) 86.5 Lymph % (Auto) 10.5 Dyer % (Auto) 2.4 Eos % (Auto) 0.3 Baso % (Auto) 0.3 Absolute Neuts (auto) 8.7 H Absolute Lymphs (auto) 1.1 Absolute Monos (auto) 0.2 Absolute Eos (auto) 0 Absolute Basos (auto) 0 Absolute Nucleated RBC 0 Nucleated RBC % 0 Fibrinogen Sodium 131 L Potassium 4.3 Chloride 101 Carbon Dioxide 24 Anion Gap 6 BUN 11 Creatinine 0.49 L Est GFR ( Amer) 176.0 Est GFR (Non-Af Amer) 145.4 BUN/Creatinine Ratio 22.4 H Glucose 182 H Calcium 7.8 L Anti-Nuclear Antibody Syphilis IgG Antibody Assessment - Problem List Assessment: Patient Problems Bipolar depression (Acute) DVT prophylaxis (Acute) Full code status (Acute) Generalized pain (Acute) Livedo reticularis (Acute) SIRS (systemic inflammatory response syndrome) (Acute) Shortness of breath (Acute) Tachycardia (Acute) Plan: Rash: much improved on Steroids. Consider conversion to 60mg prednisone tomorrow with a gradual taper of 10mg every 4 days. I would like to follow up with her in 1 week to review labs and skin biopsy. Arthralgias: Improved: possibly an allergic reaction to an unknown etiology. Does not seem to have significant mucous membrane involvement. XIOMARA was negative. Consider IGA deposition? Dyspnea: Improved. Vaginal irritation: will likely need PCP follow up soon to address; it may improve as we reduce inflammation
[2018-10-23 14:34] LABS: EBV Capsid Ag IgG Ab Positive (Negative); EBV Capsid Ag IgM Ab Negative (Negative); Epstein-Barr Nuclear Antigen Positive (Negative)
--- NOTE | 2018-10-23 18:05 | DS ---
CC: Dr. Andre * DISCHARGE SUMMARY: DATE OF ADMISSION: 10/21/18 DATE OF DISCHARGE: 10/23/18 PRIMARY CARE PHYSICIAN: Dr. Andre. ATTENDING PHYSICIAN: Dr. Gifford * (dictation provided by Zoila Scott NP). PRIMARY DIAGNOSES: Diffuse rash with shortness of breath, arthralgias, myalgias , vaginitis, and lymphadenopathy, now resolving, of unclear etiology. SECONDARY DIAGNOSES: 1. History of bipolar depression. 2. History of superficial blood clots in the right lower extremity. MEDICATIONS AT TIME OF DISCHARGE: 1. Prednisone starting at 60 mg p.o. daily, decreasing by 10 mg q. 4 days. 2. Diflucan 150 mg p.o. once for persistent vaginitis p.r.n. 3. Latuda 60 mg p.o. daily. 4. Trazodone 50 mg p.o. at bedtime. 5. Multivitamin 1 tab p.o. daily. HOSPITAL COURSE: Ms. Andrey Hinkle is a 33-year-old female who presented to the hospital on 10/21/18 with concern for shortness of breath and rash. Please see dictated H and P from Kinga Eli for complete details. In brief, the patient states that her symptoms had come on abruptly about 3 days prior to admission. She noted shortness of breath with exertion. She also noted a diffuse generalized rash. She also complained of generalized myalgias and arthralgias and some facial swelling. In her primary care office, she was noted to have heart rate in the 140s and therefore, she was sent to the emergency room for evaluation. In the emergency room, the patient also noted pain with urination, described as pain with urine hitting the vulva, consistent with a vaginitis. In the emergency room, the patient had an extensive workup began including: Chest x-ray, which showed "no active cardiopulmonary disease." Chest thorax CTA that showed "no pulmonary arterial filling defect to suggest pulmonary embolism. Right axillary lymphadenopathy and cholelithiasis." She had an EKG, which showed a sinus tachycardia with a heart rate of 103 and no evidence of ischemia. Labs showed a white blood cell count of 14.1 and normal hemoglobin and platelet count. Her ESR is 25. Her CRP was 132.76. Her BUN and creatinine were normal. Her electrolytes were normal. Beta hCG was negative. Her urinalysis showed 2+ leuk esterase, 2+ bacteria, squamous epithelial cells were present. She was tachycardiac with a heart rate of 128. Blood pressure was stable systolically in the 110s. She was not hypoxic on room air. Further workup included transthoracic echocardiogram that showed an intact ejection fraction 50% to 55% with no significant wall motion or valvular abnormalities. Because of the rash, the patient did have a biopsy and that result is pending. Based on her symptoms of unclear etiology with no evidence of infection, she was seen in consultation by Dr. Man from Rheumatology and I refer you to his note for complete details but in brief, he noted that her defuse rash appeared could be related to vasculopathy or vasculitis and he wondered if possibly she had an inflammatory condition caused by an allergic reaction to an unknown event or trigger or possibly an involving connective tissue disorder or vasculopathy. His workup included an XIOMARA, RPR, CMV titers, anticardiolipin antibodies, ANCA, celiac panel, Abdiel-Rao virus, C4 complement, cryoglobulin and cryofibrinogen, and parvovirus. Thus far results have been available are that syphilis antibody was negative, mono screen was negative, flu swabs were negative. For her vaginitis symptoms, she had a negative gonorrhea and chlamydia as well as negative yeast and BV. Antinuclear antibody was 0.2. Dr. Man did also recommend the initiation of Solu-Medrol, which was done as of yesterday. The patient's report stated that she is feeling better. She has had significant improvement in her rash. She has been able to be up and ambulating on the unit without significant shortness of breath or tachycardia. She has had some significant improvement in her vaginitis as well and will note that she was treated with 1 round of Diflucan for suspected vulvovaginitis. Ms. Balderas is doing much better today. The etiology of her symptoms remains unclear; however, recommendations are from Dr. Man that she can follow up with him within 1 week while she continues a prolonged steroid taper, again as noted above starting at 60 mg and deceasing by 10 mg q.4 days. Ms. 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 DISPOSITION: Home. DIET: Regular. ACTIVITY: As tolerated. FOLLOWUP PLANS: 1. Please follow up with Dr. Man in the next week. 2. Please follow up with Dr. Andre within the next week. TIME SPENT: Approximately 60 minutes was spent on the discharge of this patient with more than half the time spent with the patient at bedside reviewing the events leading up to and during this hospitalization, performing the physical examination and reviewing the plan of care. ZOILA SCOTT NP [id number]/CPS #: [id number] LIVAN
[2018-10-24] MEDS ORDERED: methylPREDNISolone 125 MG* 2 ML VIAL IV SCH (09:00)
[2018-10-25 15:15] LABS: Cytomegalovirus IgG Antibody Positive (Negative)
[2018-10-25 20:48] LABS: Tissue Transglutaminase IgA Ab <1.2 U/mL
[2018-10-25 23:20] LABS: Immunoglobulin A 319 mg/dL (61 - 356)
== END 2018-10-23 14:40 | disposition home or self-care (01) ==
LOC: ED 08:57 → MED 18:12
PROVIDERS: ADMIT Internal Medicine; ATTEND Internal Medicine
DX: R21 Rash and other nonspecific skin eruption (principal); R06.02 Shortness of breath; M25.50 Pain in unspecified joint; N76.0 Acute vaginitis; R59.1 Generalized enlarged lymph nodes; F32.9 Major depressive disorder, single episode, unspecified; I82.4Z1 Acute embolism and thrombosis of unspecified deep veins of right distal lower extremity; Z88.0 Allergy status to penicillin; F17.210 Nicotine dependence, cigarettes, uncomplicated; R00.0 Tachycardia, unspecified; R06.00 Dyspnea, unspecified
CPT/HCPCS: 36415; 71046; 71275; 80048; 80053; 80307; 81003; 81015; 82550; 82585; 82595; 82784; 83516; 83605; 84443; 84702; 85025; 85379; 85384; 85610; 85652; 86038; 86140; 86147; 86160; 86308; 86592; 86644; 86645; 86664; 86665; 86747; 87040; 87086; 87480; 87491; 87510; 87591; 87651; 93005; 93306; 96361; 96365; 96366; 99285; A9270-GY; C8929; G0378; J0696; J2920; Q9967

== ENCOUNTER 2018-10-27 17:08 | Emergency (ER) | payer OTHER ==
--- NOTE | 2018-10-27 19:11 | ED ---
Lower Extremity - HPI Summary HPI Summary: 33-year-old female presents with leg swelling. He was sent from Dr. eric office for ultrasound. She was recently discharged from the hospital rash. has hx of plebitis. She denies any pain. Currently on steroids. She also has on the rash under her breasts that is being worked up for. She has been having low pulses occasionally. She denies any new shortness of breath. She is feeling fatigued. No chest pain. is a smoker. - History of Current Complaint Chief Complaint: EDExtremityLower Stated Complaint: RULE OUT DVT PER PT Time Seen by Provider: 10/27/18 19:02 Hx Last Menstrual Period: 06/19/17 Pain Intensity: 0 - Allergies/Home Medications Allergies/Adverse Reactions: Allergies Allergy/AdvReac Type Severity Reaction Status Date / Time fluoxetine Allergy Agitation Verified 10/27/18 17:17 Penicillins Allergy Hives Verified 10/27/18 17:17 PMH/Surg Hx/FS Hx/Imm Hx Endocrine/Hematology History: Denies: Hx Diabetes, Hx Thyroid Disease Cardiovascular History: Reports: Hx Deep Vein Thrombosis - in 2016 Denies: Hx Hypertension Respiratory History: Denies: Hx Asthma, Hx Chronic Obstructive Pulmonary Disease (COPD) GI History: Denies: Hx Ulcer History: Denies: Hx Renal Disease Sensory History: Denies: Hx Contacts or Glasses, Hx Hearing Aid Opthamlomology History: Denies: Hx Contacts or Glasses - Immunization History Date of Tetanus Vaccine: UTD Date of Influenza Vaccine: NO Infectious Disease History: No Infectious Disease History: Denies: Hx Clostridium Difficile, Hx Hepatitis, Hx Human Immunodeficiency Virus (HIV), Hx of Known/Suspected MRSA, Hx Shingles, Hx Tuberculosis, Hx Known/ Suspected VRE, Hx Known/Suspected VRSA, History Other Infectious Disease, Traveled Outside the [place] in Last 30 Days - Family History Known Family History: Positive: Cardiac Disease, Hypertension, Diabetes, Other - a/f - Social History Alcohol Use: Occasionally Substance Use Type: Reports: None Smoking Status (MU): Light Every Day Tobacco Smoker Length of Time of Smoking/Using Tobacco: 4 cig a day Review of Systems Negative: Fever Negative: Chest Pain Negative: Shortness Of Breath Positive: Edema - legs All Other Systems Reviewed And Are Negative: Yes Physical Exam Triage Information Reviewed: Yes Vital Signs On Initial Exam: Initial Vitals Temp Pulse Resp BP Pulse Ox 97.5 F 62 16 115/77 96 10/27/18 17:10 10/27/18 17:10 10/27/18 17:10 10/27/18 17:10 10/27/18 17:10 Vital Signs Reviewed: Yes Appearance: Positive: Well-Appearing Skin: Positive: Warm, Dry Head/Face: Positive: Normal Head/Face Inspection Eyes: Positive: Normal, Conjunctiva Clear ENT: Positive: Pharynx normal Respiratory/Lung Sounds: Positive: Clear to Auscultation, Breath Sounds Present Cardiovascular: Positive: Normal, RRR Musculoskeletal: Positive: Edema Left, Edema Right, Other - good pulses Neurological: Positive: Normal Psychiatric: Positive: Normal Diagnostics - Vital Signs Vital Signs Temp Pulse Resp BP Pulse Ox 10/27/18 17:10 97.5 F 62 16 115/77 96 - Laboratory Lab Statement: Any lab studies that have been ordered have been reviewed, and results considered in the medical decision making process. - Ultrasound No standard instances Ultrasound Interpretation Completed By: Radiologist Summary of Ultrasound Findings: IMPRESSION: No acute findings. No right or left lower extremity DVT. Lower Extremity Course/Dx - Course Course Of Treatment: 33-year-old female presents with leg swelling. He was sent from Dr. eric office for ultrasound. She was recently discharged from the hospital rash. has hx of plebitis. She denies any pain. Currently on steroids. She also has on the rash under her breasts that is being worked up for. She has been having low pulses occasionally. She denies any new shortness of breath. She is feeling fatigued. No chest pain. is a smoker. On exam female notes bilateral legs edema. Right more edema than left. Ultrasound of both extremities is normal. Will follow with Dr. eric. Patient understand and agrees with plan. - Diagnoses Differential Diagnosis/HQI/PQRI: Positive: DVT, Phlebitis, Sprain Provider Diagnoses: Leg edema Discharge - Sign-Out/Discharge Documenting (check all that apply): Patient Departure Patient Received Moderate/Deep Sedation with Procedure: No - Discharge Plan Condition: Good Disposition: HOME Patient Education Materials: Leg Edema (ED) Referrals: Luis Andre MD [Primary Care Provider] - Additional Instructions: Use compression socks Ice Elevate Take Tylenol for pain every 6 hours Follow up with primary within 5 days Return to ED if develop any new or worsening symptoms - Billing Disposition and Condition Condition: GOOD Disposition: Home
[2018-10-27 19:25] VITALS: BP 122/64
== END 2018-10-27 19:25 | disposition home or self-care (01) ==
LOC: ED 17:08
DX: R60.0 Localized edema (principal); R21 Rash and other nonspecific skin eruption; R53.83 Other fatigue; Z86.718 Personal history of other venous thrombosis and embolism; Z88.0 Allergy status to penicillin; Z88.8 Allergy status to other drugs, medicaments and biological substances; F17.210 Nicotine dependence, cigarettes, uncomplicated
CPT/HCPCS: 93970; 99281

== ENCOUNTER 2018-11-03 14:05 | Emergency (ER) | payer OTHER ==
--- NOTE | 2018-11-03 14:14 | ED ---
Complex/Multi-Sys Presentation - HPI Summary HPI Summary: A 33 y/o F presents to ED referred by Dr. Man, project designer, for kidney US and repeat d-dimer due to blood in urine. She was seen at [facility] and admitted for three days for diffuse rash, pedal edema and tachycardia. During that time, she had an elevated d-dimer and blood in her urine. She did have lab work done yesterday. Associated sx: SOB on exertion. Denies abd pain, cough, congestion, fever, bowel changes, blood in stool. She is a smoker. She takes Latuda, Trazadone, and is weaning off Prednisone, which she took 30mg today. LN: irregular, Mirena IUD placed. She feels at baseline at bedside. - History Of Current Complaint Hx Obtained From: Patient Onset/Duration: Still Present Timing: Constant Associated Signs And Symptoms: Positive: SOB - with exertion, Other - elevated d -dimer, hematuria - Allergies/Home Medications Allergies/Adverse Reactions: Allergies Allergy/AdvReac Type Severity Reaction Status Date / Time fluoxetine Allergy Agitation Verified 11/03/18 16:33 Penicillins Allergy Hives Verified 11/03/18 16:33 Home Medications: Home Medications Famotidine TAB 40 MG(NF) [Pepcid TAB 40 MG(NF)] 40 mg PO DAILY PRN 11/03/18 [ History Confirmed 11/03/18] predniSONE TAB* [Deltasone 10 MG TAB*] 40 mg PO DAILY 11/03/18 [History Confirmed 11/03/18] PMH/Surg Hx/FS Hx/Imm Hx Previously Healthy: No Endocrine/Hematology History: Denies: Hx Diabetes, Hx Thyroid Disease Cardiovascular History: Reports: Hx Deep Vein Thrombosis - in 2016 Denies: Hx Hypertension Respiratory History: Denies: Hx Asthma, Hx Chronic Obstructive Pulmonary Disease (COPD) GI History: Denies: Hx Ulcer History: Denies: Hx Renal Disease Sensory History: Denies: Hx Contacts or Glasses, Hx Hearing Aid Opthamlomology History: Denies: Hx Contacts or Glasses - Immunization History Date of Tetanus Vaccine: UTD Date of Influenza Vaccine: NO Infectious Disease History: No Infectious Disease History: Denies: Hx Clostridium Difficile, Hx Hepatitis, Hx Human Immunodeficiency Virus (HIV), Hx of Known/Suspected MRSA, Hx Shingles, Hx Tuberculosis, Hx Known/ Suspected VRE, Hx Known/Suspected VRSA, History Other Infectious Disease, Traveled Outside the [place] in Last 30 Days - Family History Known Family History: Positive: Cardiac Disease, Hypertension, Diabetes, Other - a/f - Social History Occupation: Employed Full-time Lives: Alone Alcohol Use: Occasionally Hx Substance Use: No Substance Use Type: Reports: None Hx Tobacco Use: Yes Smoking Status (MU): Light Every Day Tobacco Smoker Length of Time of Smoking/Using Tobacco: 4 cig a day Review of Systems Negative: Fever Negative: Other - neg: congestion Positive: Shortness Of Breath. Negative: Cough Negative: Abdominal Pain, Other - neg: bowel changes, blood in stool Positive: hematuria All Other Systems Reviewed And Are Negative: Yes Physical Exam - Summary Physical Exam Summary: Appearance: Well appearing, no pain distress Skin: warm, dry, reflects adequate perfusion Head/face: normal Eyes: EOMI, NAYE ENT: mucous membranes moist Neck: supple, non-tender Respiratory: CTA, breath sounds present Cardiovascular: RRR, pulses symmetrical Abdomen: non-tender, soft Bowel Sounds: present Musculoskeletal: normal, strength/ROM intact Neuro: normal, sensory motor intact, A&Ox3 Triage Information Reviewed: Yes Vital Signs On Initial Exam: Initial Vitals Temp Pulse Resp BP Pulse Ox 98.5 F 94 20 143/93 97 11/03/18 14:08 11/03/18 14:08 11/03/18 14:08 11/03/18 14:08 11/03/18 14:08 Vital Signs Reviewed: Yes Diagnostics - Vital Signs Vital Signs Temp Pulse Resp BP Pulse Ox 11/03/18 14:08 98.5 F 94 20 143/93 97 - Laboratory Lab Statement: Any lab studies that have been ordered have been reviewed, and results considered in the medical decision making process. - Ultrasound No standard instances Ultrasound Interpretation Completed By: Radiologist Summary of Ultrasound Findings: RENAL US IMPRESSION: Unremarkable renal ultrasound. ED provider has reviewed this report. Re-Evaluation - Re-Evaluation 1 Re-Evaluation Time: 16:05 Change: Unchanged Comment: Discussing US results with pt and plan to DC. Pt is agreeable. Complex Multi-Symp Course/Dx Course Of Treatment: Nurse's notes reviewed. Patient sent here for evaluation of microscopic hematuria and d-dimer at 450. The patient recently was admitted with a d-dimer of at thousand and this represents a significant improvement. Is likely just normalizing. The patient is completely asymptomatic at present. There is concerned that perhaps nephritis was the issue. Her renal function is normal in all laboratories were done yesterday. Renal ultrasound was performed which is negative. She'll follow-up with her primary care physician and her technical administrator. - Diagnoses Differential Diagnoses/HQI/PQRI: Other - Nephritis, vasculitis, renal disease, autoimmune disease Provider Diagnoses: Microscopic hematuria Discharge - Sign-Out/Discharge Documenting (check all that apply): Patient Departure - DC Patient Received Moderate/Deep Sedation with Procedure: No - Discharge Plan Condition: Improved Disposition: HOME Patient Education Materials: Hematuria (ED) Referrals: Luis Andre MD [Primary Care Provider] - Crescencio Man MD [Medical Doctor] - Additional Instructions: Drink plenty of fluids. Follow-up with the technical administrator in your primary care doctor as scheduled. Return if worse, lower extremity swelling, new symptoms or other concerns. - Billing Disposition and Condition Condition: IMPROVED Disposition: Home - Attestation Statements Document Initiated by Nirmalibjose: Yes Documenting Scribe: Sarabjit Thomas Provider For Whom Rosalba is Documenting (Include Credential): Dr. Kaveh Parks MD Scribe Attestation: I, john Olsoned for Dr. Kaveh Parks MD on 11/03/18 at 1718. Scribe Documentation Reviewed: Yes Provider Attestation: The documentation as recorded by the Sarabjit mejía accurately reflects the service I personally performed and the decisions made by me, Dr. Kaveh Parks MD Status of Scribe Document: Viewed
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
[2018-11-03 16:26] VITALS: BP 137/84
== END 2018-11-03 16:25 | disposition home or self-care (01) ==
LOC: ED 14:05
DX: R31.29 Other microscopic hematuria (principal); F17.210 Nicotine dependence, cigarettes, uncomplicated; Z88.0 Allergy status to penicillin; Z88.8 Allergy status to other drugs, medicaments and biological substances; Z86.718 Personal history of other venous thrombosis and embolism
CPT/HCPCS: 76775; 99282